=== PATIENT | female | born 1995 | race Caucasian/White ===

== ENCOUNTER 2021-04-21 11:26 | Inpatient (IN) ==
[2021-04-21] MEDS ORDERED: TERBUTALINE 1 MG/1 ML VIAL SUBCUT PRN (12:13)
[2021-04-21] MEDS ORDERED: LIDOCAINE 1% 50 ML VIAL MISC INJ ONE (12:13)
[2021-04-21] MEDS ORDERED: miSOPROStoL 200 MCG TABLET VAG PRN (12:13)
[2021-04-21] MEDS ORDERED: BUTORPHANOL 1 MG/ML VIAL IV PRN (12:13)
[2021-04-21] MEDS ORDERED: ONDANSETRON 4 MG/2 ML VIAL IV PRN (12:13)
[2021-04-21] MEDS ORDERED: CARBOPROST TROMETHAMINE 250 MCG/ML AMP IM PRN (12:13)
[2021-04-21 12:32] LABS: Basophils % 0.3 % (0.0-0.8); Eosinophils % 0.2 % (0.00-10.9); Hematocrit 35.7 VOL% (35.7-47.0); Hemoglobin 11.3 GM/DL (12.0-16.0); Immature Granulocytes % 0.8 %; Immature Granulocytes Absolute 0.07 #; Lymphocytes # 1.8 10*3/uL (1.4-4.0); Lymphocytes % 19.3 % (21.3-54.2); Mean Corpuscular HGB Conc 31.7 GM/DL (32-36); Mean Corpuscular Volume 88.8 FL (87-102); Mean Platelet Volume 12.7 FL (9.6-12.0); Monocytes % 6.8 % (1.7-12.7); Neutrophils % 72.6 % (38.7-73.9); Platelet Count 206 T/CUMM (130-400); Red Blood Count 4.02 MC/CUMM (3.8-5.5); Red Cell Distribution Width 13.9 % (9.3-17.3); White Blood Count 9.3 T/CUMM (4-12)
[2021-04-21] MEDS: OXYTOCIN/LR 20 UNIT/1,000 ML BAG IV SCH (12:47)
[2021-04-21] MEDS: LACTATED RINGERS 1,000 ML IV SCH ×4 (12:51→20:58)
[2021-04-21 15:13] LABS: Bacteria,Urine Occasional /HPF (Few); Bilirubin,Urine Negative (Negative); Blood, Urine Moderate mg/dL (Negative); Glucose,Urine (UA) Negative (Negative); Ketones,Urine Negative (Negative); Mucus,Urine Occasional /LPF (Occasional); Nitrite,Urine Negative (Negative); Protein,Urine Negative; RBC,Urine <1 /HPF (0-4); Squamous Epithelial Cell,Urine Occasional /HPF (0-10); Urine Appearance Slightly Hazy (Clear); Urine Color Yellow (Yellow); Urine Specific Gravity 1.013 (1.001-1.035); Urine Urobilinogen < 2.0 EU/DL (0.2-1.0)
[2021-04-21] MEDS ORDERED: NALOXONE 0.4 MG/ML VIAL IV PRN (19:50)
[2021-04-21] MEDS ORDERED: ePHEDrine 50 MG/ML VIAL IV PRN (19:50)
[2021-04-21] MEDS ORDERED: diphenhydrAMINE 50 MG/1 ML VIAL IV PRN ×2 (19:50)
[2021-04-21] MEDS ORDERED: FAMOTIDINE 20 MG/2 ML VIAL IV ONE (19:51)
[2021-04-21] MEDS ORDERED: CITRIC ACID/SODIUM CITRATE 30 ML UDCUP PO ONE (19:52)
[2021-04-21] MEDS ORDERED: fentaNYL 2 MCG/ROPIV 0.2% EPID 100 ML EPIDURAL SCH (20:00)
[2021-04-21] MEDS ORDERED: miSOPROStoL 200 MCG TABLET ONE (21:48)
[2021-04-21] MEDS ORDERED: TRANEXAMIC ACID 1,000 MG/10 ML VIAL ONE ×2 (21:48→22:54)
[2021-04-21] MEDS ORDERED: CARBOPROST TROMETHAMINE 250 MCG/ML AMP IM ONE (21:49)
[2021-04-21] MEDS ORDERED: METHYLERGONOVINE 0.2 MG/1 ML AMP ONE ×2 (21:49→22:54)
[2021-04-21] MEDS ORDERED: LIDOCAINE 1% 50 ML VIAL ONE (21:50)
[2021-04-21] MEDS ORDERED: SODIUM CHLORIDE 0.9% 0 ML IV ONE (21:50)
[2021-04-21] MEDS ORDERED: SODIUM CHLORIDE 0.9% 100 ML IV ONE (22:55)
[2021-04-22] MEDS ORDERED: RHO(D) IMMUNE GLOBULIN 300 MCG SYRINGE IM ONE (00:43)
[2021-04-22] MEDS ORDERED: DIPH/TET/ACEL PERT BOOSTER VACCINE 0.5 ML VIAL IM ONE (00:43)
[2021-04-22] MEDS ORDERED: METHYLERGONOVINE 0.2 MG/1 ML AMP IM ONE (00:43)
[2021-04-22] MEDS ORDERED: ACETAMINOPHEN 325 MG TABLET PO PRN (00:43)
[2021-04-22] MEDS ORDERED: LANOLIN 50% CREAM 0.3 OZ TUBE TOP PRN (00:43)
[2021-04-22] MEDS ORDERED: ACETAMINOPHEN/CODEINE 300-30 MG TABLET PO PRN (00:43)
[2021-04-22] MEDS ORDERED: WITCH HAZEL PADS 100/JAR TOP PRN (00:43)
[2021-04-22] MEDS ORDERED: HYDROCORTISONE 2.5% RECTAL CREAM 30 GM TUBE TOP PRN (00:43)
[2021-04-22] MEDS ORDERED: MEASLES/MUMPS/RUBELLA VACCINE 0.5 ML VIAL SUBCUT ONE (00:43)
[2021-04-22] MEDS ORDERED: BISACODYL 10 MG SUPP RECTAL PRN (00:43)
[2021-04-22 01:05] LABS: Cord Venous Blood HCO3 22.2 MMOL/L; Cord Venous Blood PCO2 47.8 MMHG; Cord Venous Blood PO2 28.8 MMHG
[2021-04-22] MEDS: OXYTOCIN/LR 20 UNIT/1,000 ML BAG IV SCH (01:21)
[2021-04-22] MEDS: BENZOCAINE 20%/MENTHOL 0.5% SPRAY 56 GM CAN TOP PRN (04:12)
[2021-04-22 05:31] LABS: Basophils % 0.2 % (0.0-0.8); Eosinophils % 0.1 % (0.00-10.9); Hematocrit 35.8 VOL% (35.7-47.0); Hemoglobin 11.7 GM/DL (12.0-16.0); Immature Granulocytes % 0.5 %; Immature Granulocytes Absolute 0.09 #; Lymphocytes # 2.2 10*3/uL (1.4-4.0); Lymphocytes % 13.1 % (21.3-54.2); Mean Corpuscular HGB Conc 32.7 GM/DL (32-36); Mean Corpuscular Volume 88.2 FL (87-102); Mean Platelet Volume 12.7 FL (9.6-12.0); Monocytes % 5.5 % (1.7-12.7); Neutrophils % 80.6 % (38.7-73.9); Platelet Count 188 T/CUMM (130-400); Red Blood Count 4.06 MC/CUMM (3.8-5.5); Red Cell Distribution Width 13.8 % (9.3-17.3); White Blood Count 16.4 T/CUMM (4-12)
[2021-04-22] MEDS: DOCUSATE SODIUM 100 MG CAPSULE PO SCH ×2 (09:42→21:14)
[2021-04-22] MEDS: MULTIVITAMIN (PRENATAL) TABLET PO SCH (09:42)
[2021-04-22] MEDS: IBUPROFEN 800 MG TABLET PO PRN (16:10)
[2021-04-23] MEDS: IBUPROFEN 800 MG TABLET PO PRN (09:40)
[2021-04-23] MEDS: MULTIVITAMIN (PRENATAL) TABLET PO SCH (09:40)
[2021-04-23] MEDS: DOCUSATE SODIUM 100 MG CAPSULE PO SCH (09:40)
[2021-04-23] MEDS: BENZOCAINE 20%/MENTHOL 0.5% SPRAY 56 GM CAN TOP PRN (12:10)
[2021-04-23 17:42] VITALS: BP 112/65
== END 2021-04-23 14:10 | disposition home or self-care (01) | DRG 807 ==
LOC: N.LD 11:26 → N.OB 04-22 03:52
PROVIDERS: ADMIT Obstetrics & Gynecology; ATTEND Obstetrics & Gynecology